=== PATIENT | female | born 1960 | race Caucasian/White ===

== ENCOUNTER 2021-05-15 16:43 | Inpatient (IN) | payer OTHER ==
[~2021-05-15] VITALS: Ht 160 cm; Wt 43.0 kg
[2021-05-15] MEDS ORDERED: SODIUM CHLORIDE 0.9% 500 ML IV ONE (18:45)
[2021-05-15] MEDS ORDERED: CLINDAMYCIN 600MG IV 50 ML IV ONE (18:45)
[2021-05-17] MEDS ORDERED: CLINDAMYCIN 600MG IV 50 ML IV ONE (09:16)
[2021-05-17] MEDS ORDERED: GABAPENTIN 300 MG CAP PO ONE (22:15)
[2021-05-17] MEDS ORDERED: OLANZapine 5 MG TAB PO ONE (22:15)
[2021-05-17] MEDS ORDERED: risperiDONE 1 MG TAB PO ONE (22:15)
[2021-05-17] MEDS ORDERED: hydrOXYzine 25 MG TAB or CAP PO ONE (22:15)
[2021-05-18] MEDS ORDERED: LORazepam 2MG/ML-1ML VIAL IM ONE (07:45)
[2021-05-18] MEDS ORDERED: diphenhdrAMINE HCL 50 MG/1 ML VL IM ONE (07:45)
[2021-05-18] MEDS ORDERED: HALOPERIDOL LACTATE 5 MG/ML INJ VIAL IM ONE (07:45)
[2021-05-18] MEDS: NYSTATIN TOPICAL POWDER 15GM TOP SCH ×2 (10:04→22:49)
[2021-05-18] MEDS ORDERED: SODIUM CHLORIDE 0.9% 2,000 ML IV ONE (10:15)
[2021-05-18 10:44] LABS: Urine Bacteria NONE SEEN /hpf (None Seen); Urine Blood TRACE /uL (Negative); Urine Hyaline Cast FEW /lpf (0 - 2); Urine Mucus FEW (None Seen); Urine Specific Gravity 1.021 (1.001-1.035); Urine WBC 3 /hpf (0 - 5)
[2021-05-18 18:11] LABS: Hemoglobin 9.3 g/dL (12.2-16.2); Nucleated Red Blood Cells % 0.1 %; White Blood Cell 7.5 10^3/uL (4.4-10.8)
[2021-05-18 18:28] LABS: Albumin 2.3 g/dL (3.4-5.0); Calcium 6.8 mg/dL (8.5-10.1); Potassium 3.9 mmol/L (3.5-5.1)
[2021-05-18 18:31] LABS: BUN/Creatinine Ratio 73.1; Basophils # (auto) 0 10 ^3/uL (0-0.2); Basophils % (auto) 0.5 % (0.0-2.0); Bilirubin, Total 0.4 mg/dL (0.2-1.0); Eosinophils # (auto) 0.5 10 ^3/uL (0-0.8); Eosinophils % (auto) 7.3 % (0.0-7.0); Hematocrit 28.2 % (36.0-46.0); Lymphocytes # (auto) 2.5 10 ^3/uL (0.4-5.4); Lymphocytes % (auto) 32.6 % (10.0-50.0); Mean Corpuscular Hemoglobin 31.5 pg (28.0-32.0); Mean Corpuscular Hgb Conc. 32.8 g/dL (32.0-36.0); Monocytes # (auto) 0.6 10 ^3/uL (0-1.3); Monocytes % (auto) 8.4 % (0.0-12.0); Neutrophils # (auto) 3.9 10 ^3/uL (1.6-8.6); Neutrophils % (auto) 51.2 % (37.0-80.0); Red Blood Cells 2.94 10^6/uL (4.0-5.20); Red Cell Distribution Width 14.5 % (11.8-14.3); Total Protein 5.5 g/dL (6.4-8.2)
[2021-05-18 18:32] LABS: INR 1.1 (0.9-1.15)
[2021-05-18] MEDS: SODIUM CHLORIDE 0.9% 1,000 ML IV SCH (20:08)
[2021-05-18] MEDS ORDERED: HYDROcodone-ACET 5/325MG TAB PO ONE (20:15)
[2021-05-18] MEDS ORDERED: LORazepam 2MG/ML-1ML VIAL IV ONE (20:15)
[2021-05-18] MEDS ORDERED: ACETAMINOPHEN 325 MG TAB PO PRN (21:15)
[2021-05-18] MEDS ORDERED: DOCUSATE SOD 100 MG CAP PO PRN (21:15)
[2021-05-18] MEDS ORDERED: ALBUMIN 25% 100 ML IV ONE (21:15)
[2021-05-18] MEDS ORDERED: NITROGLYCERIN 0.4 MG SL TAB SL PRN (22:30)
[2021-05-18] MEDS: ASCORBIC ACID 500 MG TAB PO SCH (22:49)
[2021-05-18] MEDS: cefTRIAXone 1GM/50ML D5W 50 ML IV SCH (23:02)
[2021-05-18] MEDS: MORPHINE SULFATE INJECTION 2 MG/ML SYRG IV PRN (23:57)
[2021-05-19] VITALS (7 sets, daily range): BP systolic 101–137; BP diastolic 55–77
[2021-05-19] MEDS: SODIUM CHLORIDE 0.9% 1,000 ML IV SCH ×4 (02:10→21:25)
[2021-05-19 06:50] LABS: Basophils # (auto) 0 10 ^3/uL (0-0.2); Basophils % (auto) 0.3 % (0.0-2.0); Eosinophils # (auto) 0.4 10 ^3/uL (0-0.8); Eosinophils % (auto) 5.4 % (0.0-7.0); Hematocrit 31.4 % (36.0-46.0); Hemoglobin 10.4 g/dL (12.2-16.2); Lymphocytes # (auto) 2.1 10 ^3/uL (0.4-5.4); Lymphocytes % (auto) 28.1 % (10.0-50.0); Mean Corpuscular Hemoglobin 32.1 pg (28.0-32.0); Mean Corpuscular Hgb Conc. 33.1 g/dL (32.0-36.0); Mean Corpuscular Volume 96.9 fL (80.0-100.0); Monocytes # (auto) 0.6 10 ^3/uL (0-1.3); Monocytes % (auto) 7.5 % (0.0-12.0); Neutrophils # (auto) 4.5 10 ^3/uL (1.6-8.6); Neutrophils % (auto) 58.7 % (37.0-80.0); Nucleated Red Blood Cells % 0.1 %; Red Blood Cells 3.24 10^6/uL (4.0-5.20); Red Cell Distribution Width 14.3 % (11.8-14.3); White Blood Cell 7.6 10^3/uL (4.4-10.8)
[2021-05-19] MEDS: CALCIUM W/VIT D (600MG/400IU) TAB PO SCH ×2 (08:32→19:12)
[2021-05-19] MEDS: LORazepam 2MG/ML-1ML VIAL IV PRN (08:35)
[2021-05-19] MEDS: FAMOTIDINE (10MG/ML) 2ML VL IV SCH (08:36)
[2021-05-19] MEDS: ZINC SULFATE 220mg CAP or TAB PO SCH (08:52)
[2021-05-19] MEDS: MULTIPLE VITAMIN TAB PO SCH (08:52)
[2021-05-19] MEDS: ASCORBIC ACID 500 MG TAB PO SCH ×2 (08:52→21:24)
[2021-05-19] MEDS: NYSTATIN TOPICAL POWDER 15GM TOP SCH ×2 (08:53→21:24)
[2021-05-19] MEDS ORDERED: ENOXAPARIN SOD 40 MG/0.4 ML SYRINGE SC SCH (10:00)
[2021-05-19 10:40] LABS: Calcium 7.8 mg/dL (8.5-10.1); Potassium 3.3 mmol/L (3.5-5.1)
[2021-05-19 10:43] LABS: BUN/Creatinine Ratio 34.5; Bilirubin, Total 0.4 mg/dL (0.2-1.0); Total Protein 6.3 g/dL (6.4-8.2)
[2021-05-19] MEDS: HYDROcodone-ACET 5/325MG TAB PO PRN ×2 (16:01→21:23)
[2021-05-19] MEDS: cefTRIAXone 1GM/50ML D5W 50 ML IV SCH (21:24)
[2021-05-19] MEDS: ENOXAPARIN SOD 60 MG/0.6 ML SYRINGE SC SCH (21:24)
[2021-05-20] MEDS: SODIUM CHLORIDE 0.9% 1,000 ML IV SCH ×3 (04:46→18:25)
[2021-05-20 05:00] VITALS: BP 114/66
[2021-05-20 09:00] VITALS: BP 101/53
[2021-05-20] MEDS: CALCIUM W/VIT D (600MG/400IU) TAB PO SCH ×2 (09:01→18:13)
[2021-05-20] MEDS: FAMOTIDINE (10MG/ML) 2ML VL IV SCH (09:02)
[2021-05-20] MEDS: MULTIPLE VITAMIN TAB PO SCH (09:02)
[2021-05-20] MEDS: ASCORBIC ACID 500 MG TAB PO SCH ×2 (09:02→22:20)
[2021-05-20] MEDS: ENOXAPARIN SOD 60 MG/0.6 ML SYRINGE SC SCH ×2 (09:02→22:21)
[2021-05-20] MEDS: ZINC SULFATE 220mg CAP or TAB PO SCH (09:02)
[2021-05-20] MEDS: NYSTATIN TOPICAL POWDER 15GM TOP SCH ×2 (11:38→22:21)
[2021-05-20] MEDS: HYDROcodone-ACET 5/325MG TAB PO PRN ×2 (11:49→18:22)
[2021-05-20 13:00] VITALS: BP 114/51
[2021-05-20] MEDS ORDERED: IOHEXOL 350 MG/ML 100ML IJ ONE (16:09)
[2021-05-20 17:00] VITALS: BP 87/52
[2021-05-20 20:00] VITALS: BP 139/55
[2021-05-20] MEDS: MORPHINE SULFATE INJECTION 2 MG/ML SYRG IV PRN (21:46)
[2021-05-20] MEDS: ONDANSETRON HCL 4 MG/2 ML VIAL IV PRN (21:47)
[2021-05-20 22:00] VITALS: BP 139/54
[2021-05-20] MEDS: cefTRIAXone 1GM/50ML D5W 50 ML IV SCH (22:18)
[2021-05-20] MEDS: LORazepam 2MG/ML-1ML VIAL IV PRN (23:25)
[2021-05-21] MEDS: SODIUM CHLORIDE 0.9% 1,000 ML IV SCH ×4 (00:50→21:38)
[2021-05-21 05:00] VITALS: BP 98/47
[2021-05-21] MEDS: HYDROcodone-ACET 5/325MG TAB PO PRN ×3 (08:25→20:34)
[2021-05-21 09:00] VITALS: BP 90/46
[2021-05-21] MEDS: CALCIUM W/VIT D (600MG/400IU) TAB PO SCH ×2 (10:03→17:48)
[2021-05-21] MEDS: FAMOTIDINE (10MG/ML) 2ML VL IV SCH (10:03)
[2021-05-21] MEDS: ASCORBIC ACID 500 MG TAB PO SCH ×2 (10:04→21:36)
[2021-05-21] MEDS: MULTIPLE VITAMIN TAB PO SCH (10:04)
[2021-05-21] MEDS: ENOXAPARIN SOD 60 MG/0.6 ML SYRINGE SC SCH ×2 (10:04→21:38)
[2021-05-21] MEDS: NYSTATIN TOPICAL POWDER 15GM TOP SCH ×2 (10:04→21:39)
[2021-05-21] MEDS: ZINC SULFATE 220mg CAP or TAB PO SCH (10:04)
[2021-05-21 13:00] VITALS: BP 108/58
[2021-05-21 17:00] VITALS: BP 96/61
[2021-05-21] MEDS: ONDANSETRON HCL 4 MG/2 ML VIAL IV PRN (20:32)
[2021-05-21] MEDS: LORazepam 2MG/ML-1ML VIAL IV PRN (21:31)
[2021-05-21] MEDS: MORPHINE SULFATE INJECTION 2 MG/ML SYRG IV PRN (21:38)
[2021-05-21] MEDS: cefTRIAXone 1GM/50ML D5W 50 ML IV SCH (21:39)
[2021-05-21 22:00] VITALS: BP 118/64
[2021-05-22] MEDS: ONDANSETRON HCL 4 MG/2 ML VIAL IV PRN (01:27)
[2021-05-22] MEDS: MORPHINE SULFATE INJECTION 2 MG/ML SYRG IV PRN (01:28)
[2021-05-22] MEDS: SODIUM CHLORIDE 0.9% 1,000 ML IV SCH ×4 (01:30→23:30)
[2021-05-22 05:00] VITALS: BP 107/48
[2021-05-22] MEDS: CALCIUM W/VIT D (600MG/400IU) TAB PO SCH ×2 (08:22→18:32)
[2021-05-22 08:25] VITALS: BP 101/53
[2021-05-22] MEDS: HYDROcodone-ACET 5/325MG TAB PO PRN ×2 (08:27→14:25)
[2021-05-22 08:30] VITALS: BP 101/53
[2021-05-22] MEDS: FAMOTIDINE (10MG/ML) 2ML VL IV SCH (09:54)
[2021-05-22] MEDS: MULTIPLE VITAMIN TAB PO SCH (09:55)
[2021-05-22] MEDS: ASCORBIC ACID 500 MG TAB PO SCH ×2 (09:55→23:48)
[2021-05-22] MEDS: ENOXAPARIN SOD 60 MG/0.6 ML SYRINGE SC SCH ×2 (09:55→22:00)
[2021-05-22] MEDS: ZINC SULFATE 220mg CAP or TAB PO SCH (09:55)
[2021-05-22] MEDS: NYSTATIN TOPICAL POWDER 15GM TOP SCH ×2 (09:57→23:48)
[2021-05-22 12:30] VITALS: BP 101/47
[2021-05-22 16:57] VITALS: BP 122/67
[2021-05-22] MEDS ORDERED: HALOPERIDOL LACTATE 5 MG/ML INJ VIAL ONE (21:25)
[2021-05-22] MEDS ORDERED: HALOPERIDOL LACTATE 5 MG/ML INJ VIAL IM ONE (21:30)
[2021-05-22 21:54] VITALS: BP 132/76
[2021-05-22] MEDS: cefTRIAXone 1GM/50ML D5W 50 ML IV SCH (23:47)
[2021-05-23 04:46] VITALS: BP 138/74
[2021-05-23] MEDS: HYDROcodone-ACET 5/325MG TAB PO PRN ×2 (06:46→23:54)
[2021-05-23 08:00] VITALS: BP 121/79
[2021-05-23 08:20] VITALS: BP 121/79
[2021-05-23] MEDS: CALCIUM W/VIT D (600MG/400IU) TAB PO SCH ×2 (08:21→17:30)
[2021-05-23] MEDS: ZINC SULFATE 220mg CAP or TAB PO SCH (10:13)
[2021-05-23] MEDS: ASCORBIC ACID 500 MG TAB PO SCH ×2 (10:14→23:53)
[2021-05-23] MEDS: ENOXAPARIN SOD 60 MG/0.6 ML SYRINGE SC SCH ×2 (10:14→23:53)
[2021-05-23] MEDS: NYSTATIN TOPICAL POWDER 15GM TOP SCH ×2 (10:14→23:54)
[2021-05-23] MEDS: MULTIPLE VITAMIN TAB PO SCH (10:15)
[2021-05-23] MEDS: SODIUM CHLORIDE 0.9% 1,000 ML IV SCH ×3 (10:15→23:52)
[2021-05-23] MEDS: FAMOTIDINE (10MG/ML) 2ML VL IV SCH (10:27)
[2021-05-23 13:00] VITALS: BP 131/76
[2021-05-23 21:28] VITALS: BP 111/74
[2021-05-23] MEDS: cefTRIAXone 1GM/50ML D5W 50 ML IV SCH (23:53)
[2021-05-24] MEDS: LORazepam 2MG/ML-1ML VIAL IV PRN (00:12)
[2021-05-24 04:41] VITALS: BP 113/61
[2021-05-24] MEDS: HYDROcodone-ACET 5/325MG TAB PO PRN ×2 (06:48→23:50)
[2021-05-24 08:30] VITALS: BP 107/63
[2021-05-24] MEDS: CALCIUM W/VIT D (600MG/400IU) TAB PO SCH (08:34)
[2021-05-24] MEDS: SODIUM CHLORIDE 0.9% 1,000 ML IV SCH (08:46)
[2021-05-24 09:00] VITALS: BP 107/63
[2021-05-24] MEDS: ZINC SULFATE 220mg CAP or TAB PO SCH (09:00)
[2021-05-24] MEDS: MULTIPLE VITAMIN TAB PO SCH (09:00)
[2021-05-24] MEDS: FAMOTIDINE (10MG/ML) 2ML VL IV SCH (09:01)
[2021-05-24] MEDS: ASCORBIC ACID 500 MG TAB PO SCH (09:01)
[2021-05-24] MEDS: ENOXAPARIN SOD 60 MG/0.6 ML SYRINGE SC SCH (09:03)
[2021-05-24] MEDS: NYSTATIN TOPICAL POWDER 15GM TOP SCH ×2 (09:08→23:50)
[2021-05-24 13:00] VITALS: BP 131/72
[2021-05-24 17:00] VITALS: BP 135/75
[2021-05-24 22:00] VITALS: BP 132/77
[2021-05-24] MEDS: cefTRIAXone 1GM/50ML D5W 50 ML IV SCH (23:50)
[2021-05-25] MEDS ORDERED: ONDANSETRON ODT 4 MG TAB PO PRN (03:00)
[2021-05-25 05:00] VITALS: BP 133/71
[2021-05-25 07:08] LABS: Basophils # (auto) 0.1 10 ^3/uL (0-0.2); Basophils % (auto) 1.4 % (0.0-2.0); Eosinophils # (auto) 0.2 10 ^3/uL (0-0.8); Eosinophils % (auto) 3.9 % (0.0-7.0); Hematocrit 30.2 % (36.0-46.0); Lymphocytes # (auto) 2.1 10 ^3/uL (0.4-5.4); Mean Corpuscular Hemoglobin 31.1 pg (28.0-32.0); Mean Corpuscular Volume 94.3 fL (80.0-100.0); Monocytes # (auto) 0.5 10 ^3/uL (0-1.3); Monocytes % (auto) 9.4 % (0.0-12.0); Neutrophils # (auto) 2.5 10 ^3/uL (1.6-8.6); Neutrophils % (auto) 46.3 % (37.0-80.0); Nucleated Red Blood Cells % 0.1 %; Red Cell Distribution Width 13.7 % (11.8-14.3); White Blood Cell 5.5 10^3/uL (4.4-10.8)
[2021-05-25 07:16] LABS: Albumin 2.6 g/dL (3.4-5.0); BUN/Creatinine Ratio 28.9; Calcium 8.7 mg/dL (8.5-10.1); Potassium 3.8 mmol/L (3.5-5.1)
[2021-05-25 07:43] LABS: Bilirubin, Total 0.1 mg/dL (0.2-1.0); Total Protein 6.6 g/dL (6.4-8.2)
[2021-05-25 08:50] VITALS: BP 129/75
[2021-05-25] MEDS: MULTIPLE VITAMIN TAB PO SCH (10:00)
[2021-05-25] MEDS: NYSTATIN TOPICAL POWDER 15GM TOP SCH (10:00)
[2021-05-25] MEDS: FAMOTIDINE (10MG/ML) 2ML VL IV SCH (10:00)
[2021-05-25] MEDS: HYDROcodone-ACET 5/325MG TAB PO PRN (12:05)
[2021-05-25 12:24] VITALS: BP 145/83
== END 2021-05-25 15:30 | disposition left against medical advice (07) | DRG 52 ==
LOC: EDBD 16:43 → ER 16:43 → OVERFLOW 05-18 00:01 → ER 05-18 03:42 → WEST WING 05-18 23:15
PROVIDERS: ADMIT Nurse Practitioner Family; ATTEND Internal Medicine Nephrology
DX: G93.41 Metabolic encephalopathy (principal); N17.9 Acute kidney failure, unspecified; E83.51 Hypocalcemia; E88.09 Other disorders of plasma-protein metabolism, not elsewhere classified; L03.311 Cellulitis of abdominal wall; D64.9 Anemia, unspecified; E11.9 Type 2 diabetes mellitus without complications; Z43.3 Encounter for attention to colostomy; I10 Essential (primary) hypertension; J44.9 Chronic obstructive pulmonary disease, unspecified; Z20.822 Contact with and (suspected) exposure to COVID-19; F41.9 Anxiety disorder, unspecified; Z53.29 Procedure and treatment not carried out because of patient's decision for other reasons; I25.2 Old myocardial infarction; Z78.1 Physical restraint status; Z81.8 Family history of other mental and behavioral disorders; Z85.3 Personal history of malignant neoplasm of breast; Z90.11 Acquired absence of right breast and nipple; Z86.73 Personal history of transient ischemic attack (TIA), and cerebral infarction without residual deficits; Z90.710 Acquired absence of both cervix and uterus; Z91.013 Allergy to seafood; Z74.01 Bed confinement status; Z85.038 Personal history of other malignant neoplasm of large intestine; Z88.8 Allergy status to other drugs, medicaments and biological substances
CPT/HCPCS: 36415; 70450; 71275; 80053; 81001; 83605; 85025; 85610; 87040; 87426; 93970; A4565; G0378; J0696; J2405; J3490; P9047; Q0162

== ENCOUNTER 2021-05-25 18:27 | Emergency (ER) | payer OTHER ==
[~2021-05-25] VITALS: Ht 152.4 cm; Wt 45.4 kg
[2021-05-25 20:17] VITALS: BP 116/84
== END 2021-05-26 01:44 | disposition home or self-care (01) ==
LOC: ER 18:27 → EDBD 18:27 → ER 05-26 01:44
DX: Z43.3 Encounter for attention to colostomy (principal); J44.9 Chronic obstructive pulmonary disease, unspecified; I10 Essential (primary) hypertension; I25.2 Old myocardial infarction; I25.10 Atherosclerotic heart disease of native coronary artery without angina pectoris; E11.9 Type 2 diabetes mellitus without complications; Z86.73 Personal history of transient ischemic attack (TIA), and cerebral infarction without residual deficits; Z90.710 Acquired absence of both cervix and uterus; Z90.89 Acquired absence of other organs; Z91.013 Allergy to seafood